=== PATIENT | female | born 1935 | race Caucasian/White ===

== ENCOUNTER → 2016-11-27 | Outpatient (CLI) | payer OTHER ==
[~2016-11-27] MED LIST: CHOL1000 PO; GLUC10007 PO; HYDR25TA4 PO; MULT-506 PO
[2016-11-27 12:43] LABS: ALT/SGPT 19 U/L (12-78); BLOOD UREA NITROGEN 12 mg/dl (7-18); BUN/CREATININE RATIO 10.8 (10-20); CALCIUM 8.9 mg/dl (8.5-10.1); CARBON DIOXIDE 30 mmol/L (21-32); CHLORIDE 103 mmol/L (98-107); CHOLESTEROL 221 mg/dl (0-200); GLUCOSE 96 mg/dl (70-99); POTASSIUM 3.9 mmol/L (3.5-5.1); SODIUM 141 mmol/L (136-145); TRIGLYCERIDES 82 mg/dl (0-150); VERY LOW DENSITY LIPOPROT CALC 16 mg/dl
[2016-11-27 12:45] LABS: ALKALINE PHOSPHATASE 44 U/L (45-117); AST/SGOT 20 U/L (15-37); CHOLESTEROL/HDL RATIO 2.5; HDL CHOLESTEROL 89 mg/dl; LDL CHOLESTEROL CALCULATED 116 mg/dl
[2016-11-27 13:17] LABS: ESTIMATED AVERAGE GLUCOSE 120 mg/dl; HA1C FLAG Normal (Normal)
== END | disposition home or self-care (01) ==
LOC: C.LABPVFM 08:02
PROVIDERS: ATTEND Family Medicine
DX: I10 Essential (primary) hypertension (principal); R73.01 Impaired fasting glucose; E78.5 Hyperlipidemia, unspecified; E55.9 Vitamin D deficiency, unspecified

== ENCOUNTER → 2017-03-06 | Outpatient (CLI) | payer OTHER ==
[~2017-03-06] MED LIST changes: +ASPI-435 PO; +MECL1TAB42 PO; +PANT40TA2 PO
[2017-03-06 12:46] LABS: URINE PROTIEN/CREAT RATIO 0.1 (0-0.2); URINE TOTAL PROTEIN 5.9 mg/dl (0-11.9)
[2017-03-06 12:48] LABS: CALCIUM 9.3 mg/dl (8.5-10.1)
[2017-03-06 12:57] LABS: ALT/SGPT 21 U/L (12-78); BLOOD UREA NITROGEN 14 mg/dl (7-18); CARBON DIOXIDE 32 mmol/L (21-32); CHLORIDE 104 mmol/L (98-107); CREATININE 0.96 mg/dl (0.60-1.20); GLUCOSE 103 mg/dl (70-99); POTASSIUM 3.8 mmol/L (3.5-5.1); SODIUM 141 mmol/L (136-145)
[2017-03-06 13:00] LABS: ALB/GLOB RATIO 1.2 (0.9-2); ALKALINE PHOSPHATASE 36 U/L (45-117); AST/SGOT 16 U/L (15-37)
== END | disposition home or self-care (01) ==
LOC: C.LABPVFM 07:37
PROVIDERS: ATTEND Family Medicine
DX: I12.9 Hypertensive chronic kidney disease with stage 1 through stage 4 chronic kidney disease, or unspecified chronic kidney disease (principal); R73.01 Impaired fasting glucose; N18.3 Chronic kidney disease, stage 3 (moderate)

== ENCOUNTER → 2017-03-10 | Outpatient (CLI) | payer OTHER ==
[~2017-03-10] MED LIST changes: +GADAVIST IV PRN
--- NOTE | 2017-03-10 14:29 | DIAGNOSTIC IMAGING REPORT ---
MRI THE BRAIN AND PITUITARY WITHOUT AND WITH CONTRAST CLINICAL HISTORY: Pituitary neoplasm. COMPARISON STUDY: 04/18/2014 FINDINGS: Imaging was performed the sagittal axial and coronal planes, before and after the administration of 9 cc of intravenous Gadavist. Axial diffusion-weighted images reveal no evidence of acute or subacute infarction. Proton density T2-weighted and FLAIR images reveal minor foci of increased T2 signal within the white matter, likely a small vessel basis, and not unexpected for age. The pituitary gland is enlarged. There is a convex superior margin. There is a 15 x 10 x 9 mm focus of diminished enhancement within the central gland consistent with a macroadenoma. There is no significant optic chiasmatic displacement. Postcontrast images reveal no pathologically enhancing masses. IMPRESSION: 1. 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 2. Otherwise normal MRI the brain for age. Electronically signed by: Sukumar Nance M.D. 03/10/2017 2:28 PM Dictated Date/Time: 03/10/2017 2:23 PM
== END | disposition home or self-care (01) ==
LOC: C.MRI 12:32
PROVIDERS: ATTEND Internal Medicine Endocrinology, Diabetes & Metabolism
DX: D49.7 Neoplasm of unspecified behavior of endocrine glands and other parts of nervous system (principal)

== ENCOUNTER → 2017-04-24 | Outpatient (CLI) | payer OTHER ==
[~2017-04-24] MED LIST changes: -ASPI-435 PO; -GADAVIST IV PRN; -MECL1TAB42 PO; -PANT40TA2 PO
[2017-04-24 12:56] LABS: PROLACTIN 6.11 ng/mL; THYROID STIMULATING HORMONE 2.84 uIu/ml (0.300-4.500)
[2017-04-27 15:17] LABS: ILGF1 Z SCORE FEMALE -0.5 SD (-2.0 - +2.0); INSULIN LIKE GROWTH FACTOR-I 79 ng/mL (34-246)
== END | disposition home or self-care (01) ==
LOC: C.LABPVFM 08:54
PROVIDERS: ATTEND Internal Medicine Endocrinology, Diabetes & Metabolism
DX: D49.7 Neoplasm of unspecified behavior of endocrine glands and other parts of nervous system (principal)

== ENCOUNTER → 2017-06-09 | Outpatient (CLI) | payer OTHER ==
--- NOTE | 2017-06-09 14:33 | MAMMOGRAPHY REPORT ---
BILATERAL DIGITAL SCREENING MAMMOGRAM WITH CAD: 06/09/2017 CLINICAL HISTORY: Routine screening examination. TECHNIQUE: Bilateral CC and MLO views were obtained. Current study was also evaluated with a Compute r Aided Detection (CAD) system. COMPARISON: Comparison is made to exams dated: 06/03/2016 mammogram, 05/30/2015 mammogram, 05/24/2014 maribell mogram, 05/18/2013 mammogram, 05/12/2012 mammogram, and 05/07/2011 mammogram - [facility]. BREAST COMPOSITION: The tissue of both breasts is almost entirely fatty. FINDINGS: There are stable grouped punctate microcalcifications in the right breast. No suspicious m ass, architectural distortion or cluster of microcalcifications is seen. IMPRESSION: ACR BI-RADS CATEGORY 1: NEGATIVE There is no mammographic evidence of malignancy. A 1 year screening mammogram is recommended. The pa tient will receive written notification of the results. Approximately 10% of breast cancers are not detected with mammography. A negative mammographic report should not delay biopsy if a clinically suggestive mass is present. Leti Hale M.D. ay/:06/09/2017 13:58:25 Punchboard Assembler: Brenna Nguyen RT(R)(M), [facility] letter sent: Normal 1/2 BI-RADS Code: ACR BI-RADS Category 1: Negative
== END | disposition home or self-care (01) ==
LOC: C.MAMM 09:59
PROVIDERS: ATTEND Family Medicine
DX: Z12.31 Encounter for screening mammogram for malignant neoplasm of breast (principal)

== ENCOUNTER 2017-09-28 12:43 | Emergency (ER) | payer OTHER ==
[~2017-09-28] VITALS: Ht 167.6 cm; Wt 86.3 kg
[2017-09-28 12:52] VITALS: TEMP 36.6; Ht 167.6 cm; Wt 86.3 kg
[2017-09-28] MEDS ORDERED: ASPI-435 PO (13:18)
[2017-09-28] MEDS ORDERED: PANT40TA2 PO (13:18)
[2017-09-28] MEDS ORDERED: MECL1TAB42 PO (13:18)
[2017-09-28 14:05] LABS: BASO % 0.5 %; BASO ABS # 0.03 K/uL (0-0.2); COMPLETE YES; EOS % 1.9 %; HEMATOCRIT 41.3 % (37-47); IG% 0.2 %; LYMPH % 41.1 %; LYMPH ABS # 2.41 K/uL (1.2-3.4); MEAN CELL VOLUME 92.8 fL (80-100); MEAN CORPUSCULAR HEMOGLOBIN 31.5 pg (25-34); MEAN CORPUSCULAR HGB CONC 33.9 g/dl (32-36); MEAN PLATELET VOLUME 9.9 fL (7.4-10.4); MONO % 8.2 %; NEUT % 48.1 %; PLATELET COUNT 203 K/uL (130-400); RED BLOOD COUNT 4.45 M/uL (4.2-5.4); WHITE BLOOD COUNT 5.87 K/uL (4.8-10.8)
[2017-09-28 14:25] LABS: BUN/CREATININE RATIO 11.9 (10-20); CALCIUM 9.2 mg/dl (8.5-10.1); CREATININE 0.98 mg/dl (0.60-1.20); POTASSIUM 3.7 mmol/L (3.5-5.1)
[2017-09-28 14:35] LABS: ALB/GLOB RATIO 0.9 (0.9-2); CKMB/CK RATIO 0.8 (0-3.0); THYROID STIMULATING HORMONE 1.22 uIu/ml (0.300-4.500)
[2017-09-28 14:49] LABS: URINE APPEARANCE CLEAR (CLEAR); URINE BILIRUBIN NEG (NEG); URINE COLOR YELLOW; URINE NITRITE NEG (NEG); URINE PH 6.5 (4.5-7.5); URINE SPECIFIC GRAVITY 1.012 (1.000-1.030); UROBILINOGEN NEG (NEG); ZZUR CULT IF INDIC CLEAN CATCH NO
[2017-09-28 14:53] LABS: MANUAL MICROSCOPIC REQUIRED? NO; REVIEW REQ? NO
--- NOTE | 2017-09-28 14:54 | EMERGENCY ROOM VISIT NOTE ---
History Report prepared by Rose: Juan Dockery Under the Supervision of: Dr. Corbin Tesfaye M.D. First contact with patient: 14:00 Chief Complaint: DIZZY Stated Complaint: DIZZINESS Nursing Triage Summary: Pt arrived via [facility] from [facility]. The pt has a history of vertigo. The pt was singing in buddhism. She began to feel nervous, nausea and then dizzy. She felt as if she would pass out. The pt was able to sit down but the symptoms remained unchanged. Pt did take a Antivert this morning. Pt did eat breakfast this morning. Pts daughter called 911 because the pt was not feeling any better. History of Present Illness The patient is a 82 year old white female with a past medical history of vertigo and hypertension who presents to the ED with a cc of resolved dizziness beginning this morning. Positive lightheaded. Negative numbness, tingling, weakness, sick contact, fevers, chills, cough, congestion, recent stresses, urinary symptoms, abdominal pain, chest pain, leg swelling, nausea, hematemesis , blood in urine or stool. The patient states that she was at buddhism and felt as if she was going to faint. She reports that her symptoms are relieved with laying down. The patient states that she took an Antivert this morning but denies any relief of symptoms. She admits that she did not take her hypertension medication yet. Source of History: patient Onset: this morning Position: other (global) Quality: other (lightheaded) Timing: resolved Modifying Factors (Relieving): other (laying down) Associated Symptoms: No fevers, No chills, No cough, No chest pain, No nausea, No abdominal pain, No urinary symptoms, No weakness, No numbness Review of Systems See HPI for pertinent positives and negatives. A total of ten systems were reviewed and were otherwise negative. Past Medical & Surgical Medical Problems: (1) HTN (hypertension) Family History FH: cancer FH: heart disease Hypertension Social History Smoking Status: Never Smoker Alcohol Use: none Occupation Status: unemployed Current/Historical Medications Scheduled Aspirin (Aspirin 81), 81 MG PO QAM Cholecalciferol (Vitamin D3), 1 TAB PO DAILY Glucosamine Sulfate (Glucosamine), 1,000 MG PO DAILY Hydrochlorothiazide (Hctz), 6.25 MG PO DAILY Multivitamin (Multivitamin), 1 TAB PO DAILY Pantoprazole (Pantoprazole Sodium), 40 MG PO Q2D Scheduled PRN Meclizine Hcl (Meclizine Hcl), 1 TAB PO UD PRN for Dizziness or Vertigo Allergies Coded Allergies: Penicillins (Unverified Allergy, Severe, UNKNOWN, 09/28/17) Amoxicillin (Verified Allergy, Unknown, UNKNOWN, 09/28/17) Physical Exam Vital Signs Date Time Temp Pulse Resp B/P (MAP) Pulse Ox O2 Delivery O2 Flow Rate FiO2 09/28/17 14:37 64 20 130/90 97 Room Air 09/28/17 13:01 76 20 205/95 95 Room Air 81 199/102 86 141/85 09/28/17 12:52 36.6 81 20 199/102 96 Room Air 09/28/17 12:52 84 Physical Exam GENERAL: Awake, alert, well-appearing, NAD HENT: Normocephalic, atraumatic. EYES: Normal conjunctiva. Sclera non-icteric. NECK: Supple. No nuchal rigidity. FROM. RESPIRATORY: CTAB, no rhonchi, wheezing, crackles CARDIAC: RRR, no MRG ABDOMEN: Soft, NTND, BS+ MSK: No chest wall TTP, no LE edema NEURO: GCS 15, CN 2-12 intact, moves all 4s on command SKIN: No rash or jaundice noted. Medical Decision & Procedures ER Provider Diagnostic Interpretation: X-ray: Per my interpretation, radiologist review. SINGLE VIEW CHEST CLINICAL HISTORY: Dizziness. FINDINGS: An AP, portable, upright chest radiograph is compared to study dated 06/23/2016. The examination is degraded by portable technique and patient rotation. The heart is mildly enlarged and there is atherosclerotic calcification of the thoracic aorta. The pulmonary vasculature is noncongested. Chronic interstitial thickening is similar to previous. Foci of linear scarring versus atelectasis are present at the left lung base. The lungs and pleural spaces are otherwise clear. No pneumothorax is seen. The skeletal structures are osteopenic. Degenerative change is present throughout the thoracic spine. IMPRESSION: Mild cardiomegaly with no acute cardiopulmonary abnormality. Electronically signed by: Juan Dejesus M.D. 09/28/2017 2:56 PM Dictated Date/Time: 09/28/2017 2:55 PM Laboratory Results 09/28/17 13:50 Red Blood Count 4.45, Mean Corpuscular Volume 92.8, Mean Corpuscular Hemoglobin 31.5, Mean Corpuscular Hemoglobin Concent 33.9, Mean Platelet Volume 9.9, Neutrophils (%) (Auto) 48.1, Lymphocytes (%) (Auto) 41.1, Monocytes (%) (Auto) 8.2, Eosinophils (%) (Auto) 1.9, Basophils (%) (Auto) 0.5, Neutrophils # (Auto) 2.83, Lymphocytes # (Auto) 2.41, Monocytes # (Auto) 0.48, Eosinophils # (Auto) 0.11, Basophils # (Auto) 0.03 09/28/17 13:50 Test 09/28/17 13:50 09/28/17 14:16 White Blood Count 5.87 K/uL (4.8-10.8) Red Blood Count 4.45 M/uL (4.2-5.4) Hemoglobin 14.0 g/dL (12.0-16.0) Hematocrit 41.3 % (37-47) Mean Corpuscular Volume 92.8 fL (80-100) Mean Corpuscular Hemoglobin 31.5 pg (25-34) Mean Corpuscular Hemoglobin Concent 33.9 g/dl (32-36) Platelet Count 203 K/uL (130-400) Mean Platelet Volume 9.9 fL (7.4-10.4) Neutrophils (%) (Auto) 48.1 % Lymphocytes (%) (Auto) 41.1 % Monocytes (%) (Auto) 8.2 % Eosinophils (%) (Auto) 1.9 % Basophils (%) (Auto) 0.5 % Neutrophils # (Auto) 2.83 K/uL (1.4-6.5) Lymphocytes # (Auto) 2.41 K/uL (1.2-3.4) Monocytes # (Auto) 0.48 K/uL (0.11-0.59) Eosinophils # (Auto) 0.11 K/uL (0-0.5) Basophils # (Auto) 0.03 K/uL (0-0.2) RDW Standard Deviation 47.0 fL (36.4-46.3) RDW Coefficient of Variation 13.8 % (11.5-14.5) Immature Granulocyte % (Auto) 0.2 % Immature Granulocyte # (Auto) 0.01 K/uL (0.00-0.02) Anion Gap 3.0 mmol/L (3-11) Est Creatinine Clear Calc Drug Dose 49.8 ml/min Estimated GFR () 62.7 Estimated GFR (Non- 54.1 BUN/Creatinine Ratio 11.9 (10-20) Calcium Level 9.2 mg/dl (8.5-10.1) Magnesium Level 2.1 mg/dl (1.8-2.4) Total Bilirubin 0.6 mg/dl (0.2-1) Aspartate Amino Transf (AST/SGOT) 20 U/L (15-37) Alanine Aminotransferase (ALT/SGPT) 22 U/L (12-78) Alkaline Phosphatase 45 U/L (45-117) Total Creatine Kinase 85 U/L (26-192) Creatine Kinase MB 0.7 ng/ml (0.5-3.6) Creatine Kinase MB Ratio 0.8 (0-3.0) Total Protein 7.6 gm/dl (6.4-8.2) Albumin 3.7 gm/dl (3.4-5.0) Globulin 3.9 gm/dl (2.5-4.0) Albumin/Globulin Ratio 0.9 (0.9-2) Thyroid Stimulating Hormone (TSH) 1.220 uIu/ml (0.300-4.500) Urine Color YELLOW Urine Appearance CLEAR (CLEAR) Urine pH 6.5 (4.5-7.5) Urine Specific Kipling 1.012 (1.000-1.030) Urine Protein NEG (NEG) Urine Glucose (UA) NEG (NEG) Urine Ketones NEG (NEG) Urine Occult Blood NEG (NEG) Urine Nitrite NEG (NEG) Urine Bilirubin NEG (NEG) Urine Urobilinogen NEG (NEG) Urine Leukocyte Esterase NEG (NEG) Urine WBC (Auto) 0 /hpf (0-5) Urine RBC (Auto) 0-4 /hpf (0-4) Urine Hyaline Casts (Auto) 0 /lpf (0-5) Urine Epithelial Cells (Auto) 5-10 /lpf (0-5) Urine Bacteria (Auto) NEG (NEG) Laboratory results reviewed by me ECG Indication: other (dizziness) Rate (beats per minute): 66 Rhythm: normal sinus Findings: T-wave inversion (isolated in lead 3), other (Normal intervals and axis, No other ST changes or TWI) ED Course 1402: The patient was evaluated in room A12A. A complete history and physical exam was performed. 1522: I reevaluated the patient. Discussed results and discharge instructions: She verbalized understanding and agreement. The patient is ready for discharge. Medical Decision Triage Nursing notes reviewed. The patient is a 82 year old white female with a past medical history of vertigo and hypertension who presents to the ED with a cc of resolved dizziness beginning this morning. The patient's presentation and history were concerning for etiologies such as benign positional vertigo, dehydration, hypovolemia, anemia, tumor, infection, hypoglycemia, electrolyte abnormalities, cardiac sources, intracerebral event, toxicologic, neurologic, as well as others were entertained. Patient was seen and evaluated the bedside. Patient does describe some lightheadedness and dizziness as well as some darkening of vision bilaterally after change of position and buddhism. Patient states she did feel warm. Patient denies any syncope did not strike her head. No LOC. Patient states she does have a history of blood pressure but takes her medications around 3 PM. Patient denies any recent change in stressors. Patient denies any chest pain or shortness of breath. Patient denies any vaginal or rectal bleeding. Patient denies any hematemesis. Patient denies any infectious symptoms. Patient has had no recent changes in her medications. On exam the patient has a normal neurologic exam. Patient has no other concerning signs or symptoms. Patient did have blood work that was completed along with an EKG, chest x-ray. Patient's hemoglobin blood counts are normal. Patient does have a mild hyponatremia at 133. Patient's mag is normal. Patient has a negative troponin and EKG does show a single T-wave inversion in lead 3 but no other changes. I do not believe this is atypical chest pain. Patient's chest x-ray was clear. I reevaluated the patient was able tolerate by mouth. I imagine that this is likely some orthostatic hypotension as this was positional in nature. There may be some sort of element of vascular insufficiency but I do not believe it is clinically significant enough at this time to warrant more advanced imaging. Patient was told to follow-up with her PCP. Patient was amenable to this plan of care and given warning signs and return precautions. Patient was given strict follow-up, discharge, and return precautions. All questions were answered. Patient was deemed suitable for outpatient follow-up at this time. Patient agreed with the plan of care and was safely discharged home. Medication Reconcilliation Current Medication List: was personally reviewed by me Blood Pressure Screening Patient's blood pressure: Elevated blood pressure Blood pressure disposition: Referred to PCP Impression Primary Impression: Dizziness Additional Impression: HTN (hypertension) Scribe Attestation The scribe's documentation has been prepared under my direction and personally reviewed by me in its entirety. I confirm that the note above accurately reflects all work, treatment, procedures, and medical decision making performed by me. Departure Information Dispostion Home / Self-Care Referrals Simba Manjarrez M.D. (PCP) Patient Instructions Dizziness Fainting Poss Causes, Hypertension Control, Hypertension Ms, My [facility] Additional Instructions Please return to the emergency department if you have worsening or recurrent symptoms not amenable to at-home treatment. Please call for a follow-up appointment with her primary care physician. Please take your medications as prescribed. If you have other concerns and/or complaints please feel free to also call your primary care physician's office or return the ED for further evaluation, management, and treatment. Continue adequate fluid hydration. Please avoid things like alcohol and caffeine. Please be very careful with positional changes this is likely from lying down to sitting or sitting to standing. Please follow-up with your primary care physician discuss any need for more advanced imaging or studies. If you have any worsening symptoms elevated heart rate or pass out please return to the emergency department for further evaluation and treatment. Take your medications as prescribed. You have been examined and treated today on an emergency basis only. This is not a substitute for, or an effort to provide, complete comprehensive medical care. It is impossible to recognize and treat all injuries or illnesses in a single emergency department visit. It is therefore important that you follow up closely with [facility], your PCP, and/or your specialist(s). Call as soon as possible for an appointment. Thank you for your time and consideration. I look forward to speaking with you again soon. Please don't hesitate to call us if you have any questions. Problem Qualifiers Additional Impression: HTN (hypertension) Hypertension type: unspecified Qualified Codes: I10 - Essential (primary) hypertension
--- NOTE | 2017-09-28 14:58 | DIAGNOSTIC IMAGING REPORT ---
SINGLE VIEW CHEST CLINICAL HISTORY: Dizziness. FINDINGS: An AP, portable, upright chest radiograph is compared to study dated 06/23/2016. The examination is degraded by portable technique and patient rotation. The heart is mildly enlarged and there is atherosclerotic calcification of the thoracic aorta. The pulmonary vasculature is noncongested. Chronic interstitial thickening is similar to previous. Foci of linear scarring versus atelectasis are present at the left lung base. The lungs and pleural spaces are otherwise clear. No pneumothorax is seen. The skeletal structures are osteopenic. Degenerative change is present throughout the thoracic spine. IMPRESSION: Mild cardiomegaly with no acute cardiopulmonary abnormality. Electronically signed by: Juan Dejesus M.D. 09/28/2017 2:56 PM Dictated Date/Time: 09/28/2017 2:55 PM
[2017-09-28 15:39] VITALS: BP 180/103; PULSE 68; O2SAT 96
== END 2017-09-28 15:40 | disposition home or self-care (01) ==
LOC: EDBD 12:43 → C.EDA 12:44
DX: R42 Dizziness and giddiness (principal); I10 Essential (primary) hypertension; Z82.49 Family history of ischemic heart disease and other diseases of the circulatory system; Z79.82 Long term (current) use of aspirin

== ENCOUNTER → 2017-12-30 | Outpatient (CLI) | payer OTHER ==
[~2017-12-30] MED LIST changes: +ASPI-435 PO; +MECL1TAB42 PO; +PANT40TA2 PO
[2017-12-30 13:44] LABS: ALBUMIN 3.6 gm/dl (3.4-5.0); ALKALINE PHOSPHATASE 49 U/L (45-117); ALT/SGPT 21 U/L (12-78); AST/SGOT 18 U/L (15-37); BLOOD UREA NITROGEN 12 mg/dl (7-18); CALCIUM 8.9 mg/dl (8.5-10.1); CARBON DIOXIDE 31 mmol/L (21-32); CREATININE 1.02 mg/dl (0.60-1.20); GLUCOSE 99 mg/dl (70-99); POTASSIUM 3.9 mmol/L (3.5-5.1); SODIUM 139 mmol/L (136-145); TOTAL PROTEIN 7.4 gm/dl (6.4-8.2)
== END | disposition home or self-care (01) ==
LOC: C.LABPVFM 08:02
PROVIDERS: ATTEND Family Medicine
DX: I10 Essential (primary) hypertension (principal); R42 Dizziness and giddiness; H91.93 Unspecified hearing loss, bilateral

== ENCOUNTER → 2018-06-15 | Outpatient (CLI) | payer OTHER ==
--- NOTE | 2018-06-16 06:59 | MAMMOGRAPHY REPORT ---
BILATERAL DIGITAL SCREENING MAMMOGRAM TOMOSYNTHESIS WITH CAD: 06/15/2018 CLINICAL HISTORY: Routine screening. TECHNIQUE: The study was acquired using full field digital technology and interpreted from soft copy. Breast tomosynthesis in addition to standard 2D mammography was performed. Current study was also ev aluated with a Computer Aided Detection (CAD) system. COMPARISON: Comparison is made to exams dated: 06/09/2017 mammogram, 06/03/2016 mammogram, 05/30/2015 maribell mogram, 05/24/2014 mammogram, 05/18/2013 mammogram, and 05/12/2012 mammogram - [facility]. BREAST COMPOSITION: The tissue of both breasts is almost entirely fatty. FINDINGS: Stable asymmetry in the medial right breast and a few scattered benign-appearing punctate c alcifications. No suspicious mass, architectural distortion or cluster of microcalcifications is seen . IMPRESSION: ACR BI-RADS CATEGORY 1: NEGATIVE There is no mammographic evidence of malignancy. A 1 year screening mammogram is recommended.( 019) The patient will receive written notification of the results. Some breast cancers are not detected with mammography. A negative mammographic report should not petrona y biopsy if a clinically suggestive mass is present. Leti Hale M.D. ay/:06/15/2018 16:41:59 Denture Processor: RT Joyce(Caio)(M), [facility] letter sent: Normal 1/2 BI-RADS Code: ACR BI-RADS Category 1: Negative
== END | disposition home or self-care (01) ==
LOC: C.MAMM 10:03
PROVIDERS: ATTEND Family Medicine
DX: Z12.31 Encounter for screening mammogram for malignant neoplasm of breast (principal)